=== PATIENT | male | born 1995 | race Two or more races ===

== ENCOUNTER 2018-06-06 11:39 | Emergency (ER) | payer SELFPAY ==
[~2018-06-06] VITALS: Ht 167.6 cm; Wt 68.2 kg
[2018-06-06] MEDS ORDERED: CEFTRIAXONE SODIUM 250 MG/VIAL IM ONE (15:45)
[2018-06-06] MEDS ORDERED: AZITHROMYCIN 500 MG TABLET PO ONE (15:45)
[2018-06-06 16:06] VITALS: BP 131/76
[2018-06-06 16:38] LABS: CLARITY URINE CLEAR (CLEAR); COLOR URINE YELLOW (YELLOW); KETONES URINE NEGATIVE (NEGATIVE); LEUKOCYTE ESTERASE URINE 2+ (NEGATIVE); NITRITE URINE NEGATIVE (NEGATIVE); OCCULT BLOOD URINE NEGATIVE (NEGATIVE); PH URINE 6.5 (4.5-8.0); PROTEIN URINE NEGATIVE (NEGATIVE); SPECIFIC GRAVITY URINE 1.014 (1.005-1.030); UROBILINOGEN URINE 0.2 E.U./dL (0.2-1.0)
== END 2018-06-06 16:34 | disposition home or self-care (01) ==
LOC: ER 11:39
DX: A64 Unspecified sexually transmitted disease (principal)
CPT/HCPCS: 81003; 96372; 99283; J0696